=== PATIENT | female | born 1960 | race Caucasian/White ===

== ENCOUNTER 2024-02-11 10:13 | Emergency (ER) | payer OTHER, MEDICARE, SELFPAY ==
--- NOTE | 2024-02-11 10:59 | PM.ANESPROC ---
Procedures Date of Service Date of Service: 02/11/24 Intubation Intubation Comments: called to ED 5, tracheostomy procedure was going on and I was informed that mouth could not be open, nasal intub. was unsuccessful. I offered to make a trial with oral intubation, used Proview 4 and 7.5 ETT, I could open pt's mouth enough to slide in the blade and after visualisation the glottis I intubated the trachea. EtCo2 was pos and SaO2 was 99% following. I left ER about [address] stated he would not need me any more. Consent for Procedure: Emergent-no informed consent obtained Time out performed: No Sedative: none Laryngoscope: fiber optic video scope ET tube size: 7.5 ET tube uncuffed: No Tube secured depth (cm): 23 Tube secured location: lips Tube placement confirmation: visualized tube passing through cords and confirmation by capnometry Patient tolerated procedure: well and no complications Intubation complications: none
--- NOTE | 2024-02-11 11:06 | P.CONGS_ITS ---
History of Present Illness Consult details Consult date: 02/11/24 Narrative: 63-year-old female brought in for cardiac arrest. According to the family, they were coming home from gnosticism service when she started to have a headache and felt that she was being shocked all over her body. She was therefore brought to the ER but as soon as she arrived, she was in cardiorespiratory arrest. She was being resuscitated in the ED but no airway could be initially obtained. A stat surgical consult was called overhead and on my [place] [facility]. 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 [facility] Past Medical History Medical History (Updated 02/12/24 @ 00:00 by Background Daemon) Cardiopulmonary arrest Social History Social History Advance Directives: No Advance Directives Information Provided: No Meds Allergies Allergy/AdvReac Type Severity Reaction Status Date / Time PAPER TAPE Allergy Mild RASH Uncoded 11/07/19 15:03 paper tape Allergy Unknown Uncoded 04/16/18 00:00 seasonal allergies Allergy Unknown Uncoded 04/16/18 00:00 Active Medications: Current Medications Levetiracetam (Keppra) 1,500 mg in 100 mls @ 400 mls/hr IV ONCE ONE Stop: 02/11/24 10:47 Levetiracetam (Keppra) 1,500 mg in 100 mls @ 400 mls/hr IV ONCE ONE Stop: 02/11/24 10:47 Physical Exam 2 Const: Other: Patient unresponsive, being ambubagged, obese Neck: Other: An incision made by the ED staff was noted on the anterior neck with bleeding Results Labs 02/11/24 11:16 02/11/24 11:16 Labs: All other labs normal. Assessment and Plan (1) Cardiopulmonary arrest: Status: Acute An incision was made by the ED staff already but there was a lot of bleeding on the field. As I was trying to control; the bleeders, the anesthesiologist who was around was able to intubate using patient using the the video laryngoscope. I had to control multiple bleeders with figure of eight sutures using Polysorb and with ligation. Once hemostasis was achieved, I applied iodophorm packing. Resuscitation was then continued as she was in cardiac arrest. Procedures Date of Service Date of Service: 02/12/24
[2024-02-11 11:21] LABS: MANUAL DIFF FLAG NO
[2024-02-11 11:23] LABS: Basophils Absolute Auto 0.1 X10*3/uL (0.0-0.2); Basophils Percent Auto 0.5 % (0-2); Eosinophils Absolute Auto 0.5 X10*3/uL (0.0-0.4); Hematocrit 41.4 % (37.0-47.0); Hemoglobin 12.8 g/dl (12.0-16.0); Imm Gran Abs Auto 1.01 X10*3/uL (0.00-0.03); Imm Gran Pct Auto 4.1 % (0.0-0.4); Lymphocytes Absolute Auto 4.9 X10*3/uL (1.2-4.9); Mean Corpuscular HGB Conc 30.9 g/dl (31.0-35.0); Mean Corpuscular Hemoglobin 27.1 pg (27.0-33.0); Mean Corpuscular Volume 87.5 fL (80.0-98.0); Mean Platelet Volume 9.9 fL (9.4-12.3); Monocytes Absolute Auto 1.3 X10*3/uL (0.1-1.2); Monocytes Percent Auto 5.5 % (2-11); NRBC Pct Auto 0.1 /100WBC (0.0-0.2); Neutrophils Absolute Auto 16.6 x10*3/uL (2.0-8.3); Neutrophils Percent Auto 67.9 % (45-73); Platelet Count 253 X10*3/uL (160-400); Red Blood Count 4.73 X10*6/uL (4.20-5.50); Red Cell Distribution Width 14.1 % (11.0-16.0); White Blood Count 24.4 X10*3/uL (4.8-10.8)
[2024-02-11 11:27] LABS: VBG Base Excess -14.6 mmol/L; VBG HCO3 18 mmol/L (22-26); VBG pCO2 80 mmHg; VBG pH 6.95 (7.32-7.43); VBG pO2 75 mmHg
[2024-02-11 11:28] LABS: Venous Blood Gas Refer to POC result
[2024-02-11 11:28] LABS: Glucose, Whole Blood 96 mg/dL (60-115)
[2024-02-11 11:38] LABS: Glucose, Whole Blood 86 mg/dL (60-115)
[2024-02-11 11:41] LABS: Alanine Aminotransferase 139 U/L (0-31); Albumin Level 3.1 g/dL (3.5-5.0); Alkaline Phosphatase 99 U/L (39-117); Anion Gap 18 (12-20); Aspartate Amino Transferase 160 U/L (5-31); Bilirubin Total 0.4 mg/dL (0.0-1.0); Blood Urea Nitrogen 17 mg/dL (9-16); Calcium 7.4 mg/dL (8.4-10.2); Carbon Dioxide 21 mmol/L (22-29); Chloride 108 mmol/L (96-108); Estimated Glomerular Filt Rate > 60; Glucose Random 127 mg/dL (60-115); Phosphorus 6.4 mg/dL (2.7-4.5); Sodium 141 mmol/L (135-145); Total Protein 5.4 g/dL (6.5-8.0)
[2024-02-11 11:44] LABS: Lactic Acid 7.2 mmol/L (0.5-2.0); Magnesium 1.4 mg/dL (1.6-2.6); Potassium 6.4 mmol/L (3.3-5.1)
[2024-02-11 11:48] LABS: Troponin-I High Sensitivity 19.5 ng/L (<3.5-17.0)
--- NOTE | 2024-02-11 12:20 | ED.CPR ---
HPI - CPR General Chief Complaint: Cardiac Arrest/CPR Stated Complaint: cardiac Time Seen by Provider: 02/11/24 10:24 Source: family and EMS Mode of arrival: EMS Limitations: other (Cardiac arrest) History of Present Illness ED Provider: Dr. Randolph Olson HPI narrative: 63-year-old female with a history of diabetes, hypertension, hyperlipidemia, ovarian cancer presents emergency department for evaluation of this will seizure and cardiac arrest. Patient was in her and they were driving to a family event. The patient complained of the headache earlier in the day but this resolved. While she was in the car she told her that she felt like she was having shocks in her chest. These appear to be multiple and brief. The was concerned and started to drive towards the emergency department and asked his son to meet them at the emergency department as well. The states the patient then lost consciousness and appeared to to become very stiff and rigid. When the arrived in the emergency department parking lot unresponsive and the son try to get a wheelchair bring the patient into the emergency department. We were notified that there was a cardiac arrest outside and I went outside with the nursing staff and the patient appeared to be very rigid and may have been having a seizure. Patient was placed on a stretcher and brought into emergency department. The patient had no pulse but did have a narrow complex rhythm on the monitor. Initially were told that the patient had an implanted defibrillator but this turned out not to be true. CPR was started immediately upon getting the patient stretcher. Patient's respirations were assisted with bag-valve mask. The patient appeared to have been actively seizing initially but then the seizure mouth was clamped shut and I was unable to pry it open to do an intubation. Etomidate, rocuronium and succinylcholine in I was still unable to open the patient's generalized intubate her. I then attempted to do a cricothyrotomy and the patient however this was unsuccessful and the patient did have significant bleeding. She may have lost 1 unit of blood and she did get 1 unit of blood transfused. An overhead page for any surgeon to come into the emergency department was answered by Dr. Worley who was not the surgeon on-call but he did assist. He was able to stop the bleeding. The patient was loaded with Keppra 4.5 g IV. Anesthesiology also responded to the overhead call for help and by the time anesthesia arrived in the emergency department I believe that the patient's seizure had stopped and the anesthesiologist was able to intubate the patient. The patient was in PEA and was treated with CPR with a Gopal device and given multiple rounds of epinephrine. At 1 point we are able to get a return of the patient's circulation and she was started on an epinephrine drip. The patient lost her pulse several times and CPR had to be restarted and she was treated with multiple doses of epinephrine. At 1 point the patient came up and had spontaneous movement Versed and ketamine. The patient however lost her pulse with PEA. She was again started on CPR with the Gopal monitor and given multiple rounds of epinephrine IV. We attempted to resuscitate her for another 20 minutes without any success without return of spontaneous circulation. The time from your rest to pronouncement was a proximally 1 hour and 20 minutes. The patient will pronounced at 11:43 hours. Please see the code note for details of medication administration. Related Data Allergies Allergy/AdvReac Type Severity Reaction Status Date / Time PAPER TAPE Allergy Mild RASH Uncoded 11/07/19 15:03 paper tape Allergy Unknown Uncoded 04/16/18 00:00 seasonal allergies Allergy Unknown Uncoded 04/16/18 00:00 [facility] Past Medical History Medical History (Updated 02/11/24 @ 16:22 by Randolph Olson MD) Cardiopulmonary arrest Social History Social History Advance Directives: No Advance Directives Information Provided: No Physical Exam Vital Signs: Exam: General: Patient was unresponsive, rigid, jaw was clenched tight Head: Normocephalic, atraumatic HEENT: Pupils were 4 mm, nonreactive, mouth was clenched tight Lung: Symmetric breath sounds with [id number] assist and after intubation Heart: No heart is Abdomen: No bowel sounds Extremities: Cyanosis of the extremities Medical Decision Making Medical Decision Making MDM Narrative: 63-year-old female with a history of diabetes, hypertension, hyperlipidemia, ovarian cancer who presents emergency department for possible seizure and cardiac arrest that occurred while her was driving here in the emergency department. Patient was taken out of her vehicle, placed on a stretcher and CPR was started immediately. The patient was in PEA and was actively seizing on presentation to the emergency department Differential diagnosis: ?Includes but is not limited to myocardial infarction, myocardial ischemia, seizure, intracranial bleed Course: Please see the HPI. Patient was pronounced at 11:43 hours. Admission/Observation Consideration of admission/observation: Escalation of care including admission/observation considered (Yes) Lab Data 02/11/24 11:16 02/11/24 11:16 Labs: Lab Results 02/11/24 02/11/24 02/11/24 Range/Units 10:42 10:47 11:16 WBC 24.4 H (4.8-10.8) X10*3/uL RBC 4.73 (4.20-5.50) X10*6/uL Hgb 12.8 (12.0-16.0) g/dl Hct 41.4 (37.0-47.0) % MCV 87.5 (80.0-98.0) fL MCH 27.1 (27.0-33.0) pg MCHC 30.9 L (31.0-35.0) g/dl RDW 14.1 (11.0-16.0) % Plt Count 253 (160-400) X10*3/uL MPV 9.9 (9.4-12.3) fL Immature Gran % (Auto) 4.1 H (0.0-0.4) % Neut % (Auto) 67.9 (45-73) % Lymph % (Auto) 20.0 (20-40) % [place] % (Auto) 5.5 (2-11) % Eos % (Auto) 2.0 (0-4) % Baso % (Auto) 0.5 (0-2) % Lymph # (Auto) 4.9 (1.2-4.9) X10*3/uL [place] # (Auto) 1.3 H (0.1-1.2) X10*3/uL Eos # (Auto) 0.5 H (0.0-0.4) X10*3/uL Baso # (Auto) 0.1 (0.0-0.2) X10*3/uL Abs Immat Gran (auto) 1.01 H (0.00-0.03) X10*3/uL Absolute Neuts (auto) 16.6 H (2.0-8.3) x10*3/uL Absolute Nucleated RBC 0.020 H (0.0-0.012) X10*3/uL Nucleated RBC % (auto) 0.1 (0.0-0.2) /100WBC Hold Purple Top SEE NOTE VBG pH (7.32-7.43) VBG pCO2 mmHg VBG pO2 mmHg VBG HCO3 (22-26) mmol/L VBG O2 Saturation % VBG Base Excess mmol/L Sodium 141 (135-145) mmol/L Potassium 6.4 H* (3.3-5.1) mmol/L Chloride 108 (96-108) mmol/L Carbon Dioxide 21 L (22-29) mmol/L Anion Gap 18 (12-20) BUN 17 H (9-16) mg/dL Creatinine 0.82 (0.5-1.4) mg/dL Estim Creat Clear Calc TNP Estimated GFR > 60 POC Glucose 86 (60-115) mg/dL Random Glucose 127 H (60-115) mg/dL Lactic Acid 7.2 H* (0.5-2.0) mmol/L Calcium 7.4 L (8.4-10.2) mg/dL Phosphorus 6.4 H (2.7-4.5) mg/dL Magnesium 1.4 L* (1.6-2.6) mg/dL Total Bilirubin 0.4 (0.0-1.0) mg/dL AST 160 H (5-31) U/L ALT 139 H (0-31) U/L Alkaline Phosphatase 99 (39-117) U/L Total Creatine Kinase 131 (26-140) U/L Troponin I High Sens 19.5 H (<3.5-17.0) ng/L Total Protein 5.4 L (6.5-8.0) g/dL Albumin 3.1 L (3.5-5.0) g/dL Blood Type Antibody Screen Crossmatch 02/11/24 02/11/24 Range/Units 11:21 11:24 WBC (4.8-10.8) X10*3/uL RBC (4.20-5.50) X10*6/uL Hgb (12.0-16.0) g/dl Hct (37.0-47.0) % MCV (80.0-98.0) fL MCH (27.0-33.0) pg MCHC (31.0-35.0) g/dl RDW (11.0-16.0) % Plt Count (160-400) X10*3/uL MPV (9.4-12.3) fL Immature Gran % (Auto) (0.0-0.4) % Neut % (Auto) (45-73) % Lymph % (Auto) (20-40) % [place] % (Auto) (2-11) % Eos % (Auto) (0-4) % Baso % (Auto) (0-2) % Lymph # (Auto) (1.2-4.9) X10*3/uL [place] # (Auto) (0.1-1.2) X10*3/uL Eos # (Auto) (0.0-0.4) X10*3/uL Baso # (Auto) (0.0-0.2) X10*3/uL Abs Immat Gran (auto) (0.00-0.03) X10*3/uL Absolute Neuts (auto) (2.0-8.3) x10*3/uL Absolute Nucleated RBC (0.0-0.012) X10*3/uL Nucleated RBC % (auto) (0.0-0.2) /100WBC Hold Purple Top VBG pH 6.95 L* (7.32-7.43) VBG pCO2 80 mmHg VBG pO2 75 mmHg VBG HCO3 18 L (22-26) mmol/L VBG O2 Saturation 88.0 % VBG Base Excess -14.6 mmol/L Sodium (135-145) mmol/L Potassium (3.3-5.1) mmol/L Chloride (96-108) mmol/L Carbon Dioxide (22-29) mmol/L Anion Gap (12-20) BUN (9-16) mg/dL Creatinine (0.5-1.4) mg/dL Estim Creat Clear Calc Estimated GFR POC Glucose 96 (60-115) mg/dL Random Glucose (60-115) mg/dL Lactic Acid (0.5-2.0) mmol/L Calcium (8.4-10.2) mg/dL Phosphorus (2.7-4.5) mg/dL Magnesium (1.6-2.6) mg/dL Total Bilirubin (0.0-1.0) mg/dL AST (5-31) U/L ALT (0-31) U/L Alkaline Phosphatase (39-117) U/L Total Creatine Kinase (26-140) U/L Troponin I High Sens (<3.5-17.0) ng/L Total Protein (6.5-8.0) g/dL Albumin (3.5-5.0) g/dL Blood Type B Positive Antibody Screen NEGATIVE Crossmatch See Detail Critical Care Time Critical Care Time Critical Care Time: Yes Total Critical Care Time: 90 Attestation: Critical Care: The patient was critically ill with a high probability of imminent or life threatening deterioration. I spent greater than 30 minutes of discontinuous time evaluating the patient,delivering critical care at the bedside, discussing and evaluating pertinent data with consultants. Critical care time does not include time spent performing separately billable procedures or teaching. Total time spent performing critical care was 90 minutes. Discharge Plan Discharge Clinical Impression: Cardiopulmonary arrest, , Seizure, PEA (Pulseless electrical activity) Patient Disposition:
--- NOTE | 2024-02-11 12:28 | PC.NURSE ---
Called and spoke with organ donor stereotyper helper and the peopole I need to speak with are not available at this time and will call me back. Reference number was given - [id number]
--- NOTE | 2024-02-11 12:40 | PC.NURSE ---
Pt.'s family stated to this RN that they have all of the pt.'s clothing and they have all of her jewelry- including the wedding rings they removed from her hand while at bedside.
--- NOTE | 2024-02-11 13:13 | PC.NURSE ---
spoke with Taylor patient care coordinator. Potential donor will be accepted per Taylor and will contact us back in a few hours to see if family has left. contact information given.
[2024-02-11 13:20] LABS: Reflex Lactate? Lactic Acid Added
== END 2024-02-11 14:23 | disposition expired ==
PROVIDERS: Internal Medicine Critical Care Medicine; Emergency Provider Emergency Medicine Emergency Medical Services
DX: I46.9 Cardiac arrest, cause unspecified (principal); R51.9 Headache, unspecified; R55 Syncope and collapse; I10 Essential (primary) hypertension; E11.9 Type 2 diabetes mellitus without complications; Z79.899 Other long term (current) drug therapy
CPT/HCPCS: 31605; 36415; 80053; 82550; 82803; 82947; 83605; 83735; 84100; 84484; 85025; 86850; 86900; 86901; 86920; 87040; 99282; 99291; 99292; J0171; P9016

== ENCOUNTER → 2024-02-11 10:16 | Outpatient (BNV) | payer OTHER, MEDICARE, SELFPAY | PROVIDERS: Emergency Provider Emergency Medicine Emergency Medical Services; Visit Provider Surgery | DX: I46.9 Cardiac arrest, cause unspecified (principal) | CPT/HCPCS: 99284 ==